=== PATIENT | female | born 1985 | race American Indian/Alaskan Native ===

== ENCOUNTER 2018-07-30 14:58 | Emergency (ER) | payer SELFPAY ==
[2018-07-30] MEDS ORDERED: IBUPROFEN PO ONE (15:42)
[2018-07-30 15:43] VITALS: BP 153/103
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
== END 2018-07-30 16:55 | disposition left against medical advice (07) ==
LOC: ED 14:58
DX: G43.909 Migraine, unspecified, not intractable, without status migrainosus (principal); M54.9 Dorsalgia, unspecified; Z53.21 Procedure and treatment not carried out due to patient leaving prior to being seen by health care provider

== ENCOUNTER 2018-07-31 01:04 | Emergency (ER) | payer MEDICAID, OTHER ==
[2018-07-31 01:23] VITALS: BP 128/92
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
== END 2018-07-31 02:55 | disposition home or self-care (01) ==
LOC: ED 01:04
DX: S29.012A Strain of muscle and tendon of back wall of thorax, initial encounter (principal); S39.012A Strain of muscle, fascia and tendon of lower back, initial encounter; Z88.0 Allergy status to penicillin; V89.2XXA Person injured in unspecified motor-vehicle accident, traffic, initial encounter; Y93.89 Activity, other specified; Y92.410 Unspecified street and highway as the place of occurrence of the external cause; Y99.8 Other external cause status
CPT/HCPCS: 99282